=== PATIENT | female | born 1980 | race Caucasian/White ===

== ENCOUNTER → 2017-09-07 | Outpatient (CLI) | payer BC ==
[~2017-09-07] MED LIST: ALPR0.25 PO; BCP PO; ONDA4TAB8 PO; OXYC-197 PO; RT-ALBUINH IH
--- NOTE | 2017-09-07 13:54 | Diagnostic Imaging Report ---
INDICATION: . TECHNIQUE: Multiple Real-time grayscale images were obtained over the gravid uterus. COMPARISON: None. FINDINGS: There is a single live fetus in a variable presentation. The placenta is posterior. The amniotic fluid volume is normal. The heart rate was recorded at 147 BPM. The cervical length is 4.8 cm. The survey demonstrates the kidneys, bladder, and stomach to be unremarkable. The intracranial structures are unremarkable. There is a four-chamber heart. There is a three-vessel cord with normal cord insertion. The spine is unremarkable. Biometrical measurements are as follows: Biparietal 4.96 cm, age 21 weeks 1 days. Head circumference 18.77 cm, age 21 weeks 1 days. Abdominal circumference 15.77 cm, age 21 weeks 0 days. Femur length 4.2 cm, age 23 weeks 5 days. Sonographic estimate age: 21 weeks 6 days. Sonographic estimated date of delivery: 01/12/2018. Estimated Weight: 469 gm (+/- 69 gm). LMP percentile: 98%. heart rate: 147 beats per minute. number: 1 of 1. IMPRESSION: Single live IUP of approximately 22 weeks gestational age. The estimated date of confinement sonographically is 01/12/2018. Dictated by: Dictated on workstation # [id number]
== END ==
LOC: RAD 12:44
PROVIDERS: ATTEND Obstetrics & Gynecology
DX: O09.522 Supervision of elderly multigravida, second trimester (principal); Z3A.21 21 weeks gestation of pregnancy
CPT/HCPCS: 76805

== ENCOUNTER 2018-01-06 09:06 | Inpatient (IN) | payer BC ==
[2018-01-06] VITALS (57 sets, daily range): BP systolic 95–159; BP diastolic 42–90
[2018-01-06] MEDS ORDERED: D5 LR IV SOLUTION 1,000 ML IV ONE (09:46)
[2018-01-06 10:19] LABS: BASOPHILS % (AUTO) 0 % (0-10); EOSINOPHILS # (AUTO) 0.5 10^3/uL (0.0-0.3); EOSINOPHILS % (AUTO) 4 % (0-10); HEMATOCRIT 33 % (35-52); HEMOGLOBIN 11.7 G/DL (11.5-16.0); LYMPHOCYTES # (AUTO) 2.7 X 10^3 (1.0-4.0); LYMPHOCYTES % (AUTO) 22 % (12-44); MEAN CORPUSCULAR HEMOGLOBIN 31 PG (25-34); MEAN CORPUSCULAR HGB CONC 35 G/DL (32-36); MEAN CORPUSCULAR VOLUME 90 FL (80-99); MEAN PLATELET VOLUME 10.8 FL (7.4-10.4); MONOCYTES # (AUTO) 0.8 X 10^3 (0.0-1.0); MONOCYTES % (AUTO) 6 % (0-12); NEUTROPHILS # (AUTO) 8.2 X 10^3 (1.8-7.8); NEUTROPHILS % (AUTO) 67 % (42-75); PLATELET COUNT 330 10^3/uL (130-400); RED BLOOD COUNT 3.73 10^6/uL (4.35-5.85); RED CELL DISTRIBUTION WIDTH 14.1 % (10.0-14.5); WHITE BLOOD COUNT 12.2 10^3/uL (4.3-11.0)
[2018-01-06 10:40] LABS: ALANINE AMINOTRANSFERASE 39 U/L (0-55); ALBUMIN 3.5 GM/DL (3.2-4.5); ALKALINE PHOSPHATASE 88 U/L (40-136); BILIRUBIN,TOTAL 0.2 MG/DL (0.1-1.0); BUN/CREATININE RATIO 13; CALCIUM 9.3 MG/DL (8.5-10.1); CARBON DIOXIDE 18 MMOL/L (21-32); CHLORIDE 109 MMOL/L (98-107); GFR ESTIMATED > 60; GLUCOSE 87 MG/DL (70-105); POTASSIUM 3.7 MMOL/L (3.6-5.0); SODIUM 138 MMOL/L (135-145); TOTAL PROTEIN 6.6 GM/DL (6.4-8.2); URIC ACID 3.9 MG/DL (2.6-7.2)
[2018-01-06] MEDS ORDERED: OXYTOCIN/NORMAL SALINE 500 ML IV SCH (11:19)
[2018-01-06] MEDS ORDERED: LACTATED RINGERS 1,000 ML IV ONE (13:41)
[2018-01-06] MEDS ORDERED: CATHETER FLUSH 10 ML SYR IV SCH (14:00)
[2018-01-06] MEDS ORDERED: SUFENTA 0.6MCG/ML BUPIVA 0.125 100 ML ONE (14:49)
[2018-01-06] MEDS ORDERED: fentaNYL INJECTION 100 MCG/2 ML AMP ONE ×2 (14:49→16:50)
[2018-01-06] MEDS ORDERED: BUPIVACAINE 0.25% 30 ML (SENSORCAINE) VIAL ONE ×2 (14:49→16:50)
[2018-01-06] MEDS ORDERED: LACTATED RINGERS 1,000 ML IV SCH (15:36)
[2018-01-06] MEDS ORDERED: EPIDURAL (SUFENTA 0.6MCG/ML BUPIVA 0.125%) 100 ML BAG EPI PRN (15:45)
[2018-01-06] MEDS ORDERED: ONDANSETRON 4 MG/2 ML (SDV) Z0FRAN IV PRN (15:45)
[2018-01-06] MEDS ORDERED: NALOXONE 0.4 MG/ML 1 ML (NARCAN) VIAL IV PRN ×2 (15:45)
[2018-01-06] MEDS ORDERED: METOCLOPRAMIDE INJ 10 MG/2 ML (REGLAN) IV PRN (15:45)
[2018-01-06] MEDS ORDERED: diphenhydrAMINE 50 MG/ML INJ (BENADRYL) IV PRN (15:45)
--- NOTE | 2018-01-06 16:17 | History & Physical-OB ---
OB - Chief Complaint & HPI Date/Time Date of Admission: Date of Admission: Jan 06, 2018 at 9:06 am Time Seen by Provider: 10:00 Chief Complaint/History OB-Reason for Admission/Chief: Induction of Labor Hx : 2 Hx Para: 1 Expected Date of Delivery: Jan 22, 2018 Gestational Age in Weeks: 37 Gestational Age in Days: 5 Indication for induction: medical complication (Uncontrolled GHTN >150/90, AMA) Admission Nurse Assessment Rev: Yes History of Labs B neg Antibody neg RI RPR NR HBsAg NR HIV NR GC neg GBS neg Allergies and Home Medications Allergies Coded Allergies: penicillin G (Verified Allergy, Unknown, 10/09/09) Home Medications Albuterol Sulfate 8.5 Gm Hfa.aer.ad, 2 PUFF IH Q4H PRN for WHEEZING, (Reported) Alprazolam 0.25 Mg Tablet, 0.25 MG PO QID PRN for ANXIETY, (Reported) Ondansetron 4 Mg Tab.rapdis, 1 EA PO Q4H Prescribed by: ZE JAY on 07/06/15 1450 Oxycodone HCl/Acetaminophen 1 Each Tablet, 1-2 EACH PO Q6H Prescribed by: CAROLINE VASQUEZ on 07/06/15 1106 [Bcp] , 1 TAB PO DAILY, (Reported) Patient Home Medication List Home Medication List Reviewed: Yes OB - History Hx of Present Care: Yes Ultrasounds: Normal mid trimester US Obstetrical Complications: Gestational Hypertension Medical Complications: Other (FERNANDES stage 1) Obstetrical History Hx Complication: Yes Hx Maternal Gestational Diabet: Yes (diet controlled) Delivery History Hx Blood Disorders: No Patient Past Medical History FERNANDES stage one Social History/Family History Recent Infectious Disease Expo: No Immunizations Date of Influenza Vaccine: Apr 06, 2015 OB - Admission Exam Physical Exam Vitals: Vital Signs 01/06/18 09:55 Temp 97.9 Pulse 97 Resp 18 B/P (MAP) 152/75 (100) O2 Delivery Room Air HEENT: NCAT Heart: Rhythm Normal Lungs: Clear Abdomen: Gravid Extremities: Normal Reflexes: Normal Cervical Dilatation: 3cm Effacement: 75% Station: -1 Membranes: Intact Heart Rate: 130's Accelerations: Accelerations Present Decelerations: Variable Decelerations Short Term Variability: Present [employer] Variability: Average (6-25) Contractions on Admission: 6-10 Minutes Apart Intensity: Mild Labs Laboratory Tests Test 01/06/18 10:01 Range/Units White Blood Count 12.2 H 4.3-11.0 10^3/uL Red Blood Count 3.73 L 4.35-5.85 10^6/uL Hemoglobin 11.7 11.5-16.0 G/DL Hematocrit 33 L 35-52 % Mean Corpuscular Volume 90 80-99 FL Mean Corpuscular Hemoglobin 31 25-34 PG Mean Corpuscular Hemoglobin Concent 35 32-36 G/DL Red Cell Distribution Width 14.1 10.0-14.5 % Platelet Count 330 130-400 10^3/uL Mean Platelet Volume 10.8 H 7.4-10.4 FL Neutrophils (%) (Auto) 67 42-75 % Lymphocytes (%) (Auto) 22 12-44 % Monocytes (%) (Auto) 6 0-12 % Eosinophils (%) (Auto) 4 0-10 % Basophils (%) (Auto) 0 0-10 % Neutrophils # (Auto) 8.2 H 1.8-7.8 X 10^3 Lymphocytes # (Auto) 2.7 1.0-4.0 X 10^3 Monocytes # (Auto) 0.8 0.0-1.0 X 10^3 Eosinophils # (Auto) 0.5 H 0.0-0.3 10^3/uL Basophils # (Auto) 0.0 0.0-0.1 10^3/uL Sodium Level 138 135-145 MMOL/L Potassium Level 3.7 3.6-5.0 MMOL/L Chloride Level 109 H 98-107 MMOL/L Carbon Dioxide Level 18 L 21-32 MMOL/L Anion Gap 11 5-14 MMOL/L Blood Urea Nitrogen 8 7-18 MG/DL Creatinine 0.60 0.60-1.30 MG/DL Estimat Glomerular Filtration Rate > 60 BUN/Creatinine Ratio 13 Glucose Level 87 70-105 MG/DL Uric Acid 3.9 2.6-7.2 MG/DL Calcium Level 9.3 8.5-10.1 MG/DL Total Bilirubin 0.2 0.1-1.0 MG/DL Aspartate Amino Transf (AST/SGOT) 36 H 5-34 U/L Alanine Aminotransferase (ALT/SGPT) 39 0-55 U/L Alkaline Phosphatase 88 40-136 U/L Total Protein 6.6 6.4-8.2 GM/DL Albumin 3.5 3.2-4.5 GM/DL OB - Assessment/Plan/Diagnosis Assessment Assessment: induction of labor Admission Dx 37 yo @ 37.5 weeks Uncontrolled GHTN AMA FERNANDES stage 1 GBS neg Admission Status: Inpatient Order (span 2 midnights) Reason for Inpatient Admission: 37 yo @ 37.5 weeks INduction of labor Uncontrolled GHTN AMA FERNANDES stage 1 GBS neg Plan Plan: Induction Induction Method: ENMANUEL SULLIVAN DO Jan 06, 2018 4:17 pm
[2018-01-06] MEDS: OXYTOCIN/NORMAL SALINE 500 ML IV SCH ×2 (18:03→19:03)
[2018-01-06] MEDS ORDERED: MEASLES,MUMPS,RUBELLA 1 EA INJ SQ ONE (18:15)
[2018-01-06] MEDS ORDERED: TETANUS,DIPTH,PERTUSS P/F (BOOSTRIX) 0.5 ML VIAL IM ONE (18:15)
[2018-01-06] MEDS ORDERED: WITCH HAZEL(TUCKS) 40 EA JAR TOP PRN (18:15)
[2018-01-06] MEDS ORDERED: DIBUCAINE (NUPERCAINAL) 1% OINT 30 GM TOP PRN (18:15)
[2018-01-06] MEDS ORDERED: BENZOCAINE/MENTHOL (DERMOPLAST) 56 ML CAN TP PRN (18:15)
--- NOTE | 2018-01-06 18:15 | OB Labor & Delivery Record ---
L&D History Date of Service Date of Service: Jan 06, 2018 History Expected Date of Delivery: Jan 22, 2018 Gestational Age in Weeks: 37 Hx : 2 Hx Para: 1 Complications Events: Induced HTN, Routine care (AMA) Operative Indications (Cesarea: N/A-Vaginal Delivery Intrapartal Events: None L&D Stage1 Stage One Onset of Labor - Date: Jan 06, 2018 Monitors and Tracing Monitor Mode: External Heart Rate: 135 Monitor Accelerations: Uniform Monitor Decelerations: Early [facility] Variability: Average (6-10) Short Term Variability: Present Presentation: Vertex Vital Signs VS - Last 72 Hours, by Label 01/06/18 01/06/18 01/06/18 01/06/18 09:55 11:15 11:30 11:45 Temp 97.9 Pulse 97 103 96 96 Resp 18 20 20 20 B/P (MAP) 152/75 (100) 132/86 (101) 141/69 (93) 139/65 (89) O2 Delivery Room Air Room Air Room Air Room Air 01/06/18 01/06/18 01/06/18 01/06/18 12:00 12:15 12:30 12:45 Pulse 96 103 100 99 Resp 20 20 20 20 B/P (MAP) 137/69 (91) 137/72 (93) 137/72 (93) 119/76 (90) O2 Delivery Room Air Room Air Room Air Room Air 01/06/18 13:00 Pulse 101 Resp 20 B/P (MAP) 133/74 (93) O2 Delivery Room Air Rupture of Membranes Spontaneous Ruture of Membrane: No Amniotic Membrane Rupture Time: 1029 Amniotic Membrane Fluid Desc.: Clear Vaginal Bleeding Description: Normal Show Progress/Notes Pitocin augmentation was started and increased to a max of 10mu/min. Epidural received for pain, first epidural did not work appropriately, it was then replaced. L&D Stage2 Stage Two Stage II Date: Jan 06, 2018 Monitors and Tracing Monitor Mode: External Heart Rate: 135 Monitor Decelerations: Variable [employer] Variability: Minimal (3-5) Short Term Variability: Present Position: Right Occiput Anterior Presentation: Vertex Cord Descript/Complications Cord Vessel Description: 3 Vessels Delivery Type Delivery Method: Spontaneous Vaginal Anterior Shoulder: Left Episiotomy/Perineal Laceration Laceraction(s)/Extensions: No Condition of Delivery 1 minute Comment: 7 5 minute Comment: 9 Notes Live male infant weight pending Condition of Condition of Infant: Living Exam: No Observed Abnormalities Resuscitation Resuscitation: N/A - Spontaneous Resp L&D Stage3 Stage Three Stage III Date: Jan 06, 2018 Pictocin Pitocin Administration mu/min: 4 Pitocin ml/hr: 4 Pitocin Administration Comment: 30 mu/min wide open at [facility] placenta Placenta Delivery Placenta Delivery: Spontaneous Delivery Summary Summary Estimated blood loss (mL): 200 Attending at delivery: Enmanuel Young DO Condition of Delivery Examined: Cervix Examined, Uterus Explored Post Hemorrhage: No Condition of Mother stable Condition of Infant (s) stable ENMANUEL YOUNG DO Jan 06, 2018 6:15 pm
[2018-01-06] MEDS: IBUPROFEN 600 MG (MOTRIN) TAB PO SCH (21:38)
[2018-01-06] MEDS: DOCUSATE SODIUM 100 MG (COLACE) CAP PO SCH (21:44)
[2018-01-07 00:30] VITALS: BP 108/62
[2018-01-07 04:09] VITALS: BP 107/62
[2018-01-07] MEDS: IBUPROFEN 600 MG (MOTRIN) TAB PO SCH ×4 (04:09→22:01)
[2018-01-07 05:49] LABS: BASOPHILS % (AUTO) 0 % (0-10); EOSINOPHILS # (AUTO) 0.3 10^3/uL (0.0-0.3); EOSINOPHILS % (AUTO) 2 % (0-10); HEMATOCRIT 30 % (35-52); HEMOGLOBIN 10.1 G/DL (11.5-16.0); LYMPHOCYTES # (AUTO) 3.3 X 10^3 (1.0-4.0); LYMPHOCYTES % (AUTO) 18 % (12-44); MEAN CORPUSCULAR HEMOGLOBIN 31 PG (25-34); MEAN CORPUSCULAR HGB CONC 34 G/DL (32-36); MEAN CORPUSCULAR VOLUME 91 FL (80-99); MEAN PLATELET VOLUME 10.7 FL (7.4-10.4); MONOCYTES # (AUTO) 1.5 X 10^3 (0.0-1.0); MONOCYTES % (AUTO) 8 % (0-12); NEUTROPHILS # (AUTO) 13.7 X 10^3 (1.8-7.8); NEUTROPHILS % (AUTO) 73 % (42-75); PLATELET COUNT 314 10^3/uL (130-400); RED BLOOD COUNT 3.31 10^6/uL (4.35-5.85); RED CELL DISTRIBUTION WIDTH 14.3 % (10.0-14.5); WHITE BLOOD COUNT 18.9 10^3/uL (4.3-11.0)
[2018-01-07 08:05] VITALS: BP 136/84
[2018-01-07] MEDS: DOCUSATE SODIUM 100 MG (COLACE) CAP PO SCH ×2 (08:05→22:00)
[2018-01-07] MEDS: PRENATAL VITAMIN 1 EA TAB PO SCH (08:05)
[2018-01-07] MEDS: FERROUS SULF 325 MG (IRON) TAB PO SCH (08:05)
[2018-01-07] MEDS: HYDROcodone/APAP 5 MG/325 MG (LORTAB) TAB PO PRN ×2 (08:10→23:01)
--- NOTE | 2018-01-07 09:15 | Postpartum Progress Note ---
Note Note Day #1 Subjective: Patient is without complaints. Ambulating, voiding. Tolerating a regular diet without nausea or vomiting. Normal lochia. Pain is well controlled with oral pain medications. [] feeding. [] Objective: Vital Sign - Last 24 Hours 01/06/18 01/06/18 01/06/18 01/06/18 09:55 11:15 11:30 11:45 Temp 97.9 Pulse 97 103 96 96 Resp 18 20 20 20 B/P (MAP) 152/75 (100) 132/86 (101) 141/69 (93) 139/65 (89) O2 Delivery Room Air Room Air Room Air Room Air 01/06/18 01/06/18 01/06/18 01/06/18 12:00 12:15 12:30 12:45 Pulse 96 103 100 99 Resp 20 20 20 20 B/P (MAP) 137/69 (91) 137/72 (93) 137/72 (93) 119/76 (90) O2 Delivery Room Air Room Air Room Air Room Air 01/06/18 01/06/18 01/06/18 01/06/18 13:00 13:15 13:30 13:45 Pulse 101 92 95 99 Resp 20 20 20 18 B/P (MAP) 133/74 (93) 137/80 (99) 137/80 (99) 155/90 (111) O2 Delivery Room Air Room Air Room Air Room Air 01/06/18 01/06/18 01/06/18 01/06/18 14:00 14:15 14:30 14:45 Pulse 88 75 74 75 Resp 18 18 18 18 B/P (MAP) 141/83 (102) 139/82 (101) 147/84 (105) 134/76 (95) O2 Delivery Room Air Room Air Room Air Room Air 01/06/18 01/06/18/01/06/18 14:56 15:00 15:05 15:10 Pulse 90 83 81 Resp 18 18 18 B/P (MAP) 148/80 (102) 147/82 (103) 132/70 (90) Pulse Ox 99 99 99 O2 Delivery Room Air Room Air Room Air Room Air 01/06/18 01/06/18 01/06/18 01/06/18 15:15 15:20 15:25 15:30 Pulse 90 96 105 100 Resp 18 18 18 18 B/P (MAP) 148/80 (102) 136/80 (98) 137/76 (96) 95/42 (59) Pulse Ox 99 97 97 98 O2 Delivery Room Air Room Air Room Air Room Air 18 62018 6/20/18 6 15:35 15:40 16:00 16:15 Pulse 92 91 96 90 Resp 18 18 18 18 B/P (MAP) 114/72 (86) 130/77 (94) 121/76 (91) 116/61 (79) Pulse Ox 97 97 99 97 O2 Delivery Room Air Room Air Room Air Room Air 18 01/06/18 01/06/18 01/06/18 16:30 16:45 16:50 16:55 Pulse 83 90 92 92 Resp 18 18 18 18 B/P (MAP) 119/67 (84) 159/87 (111) 131/78 (95) 131/78 (95) Pulse Ox 99 99 100 100 O2 Delivery Room Air Room Air Room Air Room Air 01/06/1818 601/06/18 17:00 17:05 17:10 17:15 Pulse 104 101 106 90 Resp 18 18 18 18 B/P (MAP) 126/65 (85) 129/68 (88) 110/55 (73) 126/65 (85) Pulse Ox 99 99 99 99 O2 Delivery Room Air Room Air Room Air Room Air 01/06/182018 62018 01/06/18 17:20 17:25 17:30 17:40 Pulse 101 100 90 83 Resp 18 18 18 18 B/P (MAP) 120/67 (84) 119/62 (81) 126/65 (85) 120/69 (86) Pulse Ox 97 99 99 O2 Delivery Room Air Room Air Room Air Room Air 01/06/1818 01/06/18 01/06/18 17:45 17:50 17:55 18:00 Pulse 104 108 105 113 Resp 18 18 18 18 B/P (MAP) 126/65 (85) 130/54 (79) 107/62 (77) 133/62 (85) O2 Delivery Non Rebreather Non Rebreather Non Rebreather Room Air O2 Flow Rate 10.00 10.00 10.00 6/20/18 6/20/18 6/20/18 6/20/18 18:05 18:15 18:20 18:25 Pulse 106 121 110 102 Resp 18 18 18 18 B/P (MAP) 113/62 (79) 106/56 (73) 114/58 (76) 115/58 (77) O2 Delivery Room Air Room Air Room Air Room Air 01/06/18 01/06/18 01/06/18 01/06/18 18:30 18:35 18:40 18:45 Pulse 108 103 93 97 Resp 18 18 18 B/P (MAP) 118/64 (82) 115/64 (81) 123/65 (84) 125/64 (84) O2 Delivery Room Air Room Air Room Air Room Air 01/06/18 01/06/18 01/06/18 01/06/18 18:50 19:00 19:03 19:19 Temp 96.8 Pulse 95 93 94 93 Resp 18 B/P (MAP) 124/71 (88) 122/70 (87) 119/76 (90) 117/67 (84) O2 Delivery Room Air Room Air Room Air Room Air 01/06/18 01/06/18 01/07/18 01/07/18 19:34 19:49 00:30 04:09 Temp 97.7 98.5 Pulse 88 96 86 84 Resp 18 18 B/P (MAP) 129/65 (86) 115/62 (79) 108/62 (77) 107/62 (77) Pulse Ox 98 97 O2 Delivery Room Air Room Air Room Air Room Air Intake and Output 01/06/18 01/06/18 01/07/18 15:00 23:00 07:00 Intake Total 800 ml Balance 800 ml Physical Exam: General - Alert and oriented, no apparent distress Abdomen - Soft, appropriately tender to palpation, non-distended, fundus firm at umbilicus Extremities - no edema, negative Thad's bilaterally Assessment: PPD 1 NVD Hx FERNANDES AMA Plan: Routine care. Encourage breast feeding. Encourage ambulation. Ferrous sulfate supplementation. Plan for discharge tomorrow Vitals - Labs Vital Signs - I&O Vital Signs Date Time Temp Pulse Resp B/P (MAP) Pulse Ox O2 Delivery O2 Flow Rate FiO2 01/07/18 04:09 98.5 84 18 107/62 (77) 97 Room Air 01/07/18 00:30 97.7 86 18 108/62 (77) 98 Room Air 01/06/18 19:49 96 18 115/62 (79) Room Air 01/06/18 19:34 88 18 129/65 (86) Room Air 01/06/18 19:19 93 18 117/67 (84) Room Air 01/06/18 19:03 94 18 119/76 (90) Room Air 01/06/18 19:00 96.8 93 18 122/70 (87) Room Air 01/06/18 18:50 95 18 124/71 (88) Room Air 01/06/18 18:45 97 18 125/64 (84) Room Air 01/06/18 18:40 93 18 123/65 (84) Room Air 01/06/18 18:35 103 18 115/64 (81) Room Air 01/06/18 18:30 108 18 118/64 (82) Room Air 01/06/18 18:25 102 18 115/58 (77) Room Air 01/06/18 18:20 110 18 114/58 (76) Room Air 01/06/18 18:15 121 18 106/56 (73) Room Air 01/06/18 18:05 106 18 113/62 (79) Room Air 01/06/18 18:00 113 18 133/62 (85) Room Air 01/06/18 17:55 105 18 107/62 (77) Non Rebreather 10.00 01/06/18 17:50 108 18 130/54 (79) Non Rebreather 10.00 01/06/18 17:45 104 18 126/65 (85) Non Rebreather 10.00 01/06/18 17:40 83 18 120/69 (86) Room Air 01/06/18 17:30 90 18 126/65 (85) 99 Room Air 01/06/18 17:25 100 18 119/62 (81) 99 Room Air 01/06/18 17:20 101 18 120/67 (84) 97 Room Air 01/06/18 17:15 90 18 126/65 (85) 99 Room Air 01/06/18 17:10 106 18 110/55 (73) 99 Room Air 6/20/18 17:05 101 18 129/68 (88) 99 Room Air 01/06/18 17:00 104 18 126/65 (85) 99 Room Air 01/06/18 16:55 92 18 131/78 (95) 100 Room Air 01/06/18 16:50 92 18 131/78 (95) 100 Room Air 01/06/18 16:45 90 18 159/87 (111) 99 Room Air 01/06/18 16:30 83 18 119/67 (84) 99 Room Air 01/06/18 16:15 90 18 116/61 (79) 97 Room Air 01/06/18 16:00 96 18 121/76 (91) 99 Room Air 01/06/18 15:40 91 18 130/77 (94) 97 Room Air 01/06/18 15:35 92 18 114/72 (86) 97 Room Air 01/06/18 15:30 100 18 95/42 (59) 98 Room Air 01/06/18 15:25 105 18 137/76 (96) 97 Room Air 01/06/18 15:20 96 18 136/80 (98) 97 Room Air 01/06/18 15:15 90 18 148/80 (102) 99 Room Air 01/06/18 15:10 81 18 132/70 (90) 99 Room Air 01/06/18 15:05 83 18 147/82 (103) 99 Room Air 01/06/18 15:00 90 18 148/80 (102) 99 Room Air 01/06/18 14:56 Room Air 01/06/18 14:45 75 18 134/76 (95) Room Air 01/06/18 14:30 74 18 147/84 (105) Room Air 01/06/18 14:15 75 18 139/82 (101) Room Air 01/06/18 14:00 88 18 141/83 (102) Room Air 01/06/18 13:45 99 18 155/90 (111) Room Air 01/06/18 13:30 95 20 137/80 (99) Room Air 01/06/18 13:15 92 20 137/80 (99) Room Air 01/06/18 13:00 101 20 133/74 (93) Room Air 01/06/18 12:45 99 20 119/76 (90) Room Air 01/06/18 12:30 100 20 137/72 (93) Room Air 6/20/18 12:15 103 20 137/72 (93) Room Air 01/06/18 12:00 96 20 137/69 (91) Room Air 01/06/18 11:45 96 20 139/65 (89) Room Air 01/06/18 11:30 96 20 141/69 (93) Room Air 01/06/18 11:15 103 20 132/86 (101) Room Air 01/06/18 09:55 97.9 97 18 152/75 (100) Room Air I & O 01/07/18 07:00 Intake Total 800 ml Balance 800 ml Labs Laboratory Tests 01/06/18 10:01: White Blood Count 12.2H, Red Blood Count 3.73L, Hemoglobin 11.7, Hematocrit 33L , Mean Corpuscular Volume 90, Mean Corpuscular Hemoglobin 31, Mean Corpuscular Hemoglobin Concent 35, Red Cell Distribution Width 14.1, Platelet Count 330, Mean Platelet Volume 10.8H, Neutrophils (%) (Auto) 67, Lymphocytes (%) (Auto) 22 , Monocytes (%) (Auto) 6, Eosinophils (%) (Auto) 4, Basophils (%) (Auto) 0, Neutrophils # (Auto) 8.2H, Lymphocytes # (Auto) 2.7, Monocytes # (Auto) 0.8, Eosinophils # (Auto) 0.5H, Basophils # (Auto) 0.0, Sodium Level 138, Potassium Level 3.7, Chloride Level 109H, Carbon Dioxide Level 18L, Anion Gap 11, Blood Urea Nitrogen 8, Creatinine 0.60, Estimat Glomerular Filtration Rate > 60, BUN/ Creatinine Ratio 13, Glucose Level 87, Uric Acid 3.9, Calcium Level 9.3, Total Bilirubin 0.2, Aspartate Amino Transf (AST/SGOT) 36H, Alanine Aminotransferase ( ALT/SGPT) 39, Alkaline Phosphatase 88, Total Protein 6.6, Albumin 3.5 01/07/18 05:10: White Blood Count 18.9H, Red Blood Count 3.31L, Hemoglobin 10.1L, Hematocrit 30L , Mean Corpuscular Volume 91, Mean Corpuscular Hemoglobin 31, Mean Corpuscular Hemoglobin Concent 34, Red Cell Distribution Width 14.3, Platelet Count 314, Mean Platelet Volume 10.7H, Neutrophils (%) (Auto) 73, Lymphocytes (%) (Auto) 18 , Monocytes (%) (Auto) 8, Eosinophils (%) (Auto) 2, Basophils (%) (Auto) 0, Neutrophils # (Auto) 13.7H, Lymphocytes # (Auto) 3.3, Monocytes # (Auto) 1.5H, Eosinophils # (Auto) 0.3, Basophils # (Auto) 0.0 ENMANUEL YOUNG DO Jan 07, 2018 9:15 am
--- NOTE | 2018-01-07 11:02 | Anesthesia-Regional Post-Op ---
Regional Patient Condition Mental Status: Alert, Oriented x3 Circulation: Same as Pre-Op Headache: Absent Sensation: Full Recovery Motor Block: Absent Post Op Complications Complications None Follow Up Care/Instructions Patient Instructions None needed. Anesthesia/Patient Condition Patient is doing well, no complaints, stable vital signs, no apparent adverse anesthesia problems. No complications reported per nursing. KYLE VAZQUEZ CRNA Jan 07, 2018 11:02
[2018-01-07 11:45] VITALS: BP 121/74
[2018-01-07] MEDS: CATHETER FLUSH 10 ML SYR IV SCH ×2 (12:42→14:00)
[2018-01-07] MEDS: D5 LR IV SOLUTION 1,000 ML IV SCH ×2 (12:42→18:41)
[2018-01-07 16:25] VITALS: BP 122/74
[2018-01-07 22:05] VITALS: BP 135/85
[2018-01-08] MEDS: IBUPROFEN 600 MG (MOTRIN) TAB PO SCH ×2 (03:18→09:59)
[2018-01-08 03:19] VITALS: BP 109/70
[2018-01-08] MEDS ORDERED: DOCU100C37 PO (06:36)
[2018-01-08] MEDS ORDERED: FERR325T18 PO (06:36)
[2018-01-08] MEDS ORDERED: IBUP-844 PO (06:36)
[2018-01-08] MEDS ORDERED: ACHD5005 PO (06:36)
--- NOTE | 2018-01-08 06:37 | Discharge Inst-Women's Service ---
Discharge Inst-Women's Serv Depart Medication/Instructions New, Converted or Re-Newed RX: RX on Chart Consults/Follow Up Additional Follow Up: Yes Orders/Referrals Dr. Young in 6 weeks Activity Activity: Activity as Tolerated Driving Instructions: No Driving for 1 Week NO SMOKING: NO SMOKING Nothing Inside Vagina: No Douching, No [place], No Tampons Diet Discharge Diet: No Restrictions Symptoms to Report to : Bleeding Excessive, Pain Increased, Fever Over 101 Degrees F, Vaginal Bleeding Increase, Questions/Concerns For Any Problems or Questions: Contact Your Physician Skin/Wound Care Bathing Instructions: Shower (x 2 weeks or sitz baths) ENMANUEL YOUNG DO Jan 08, 2018 6:37 am
--- NOTE | 2018-01-08 06:42 | Postpartum Progress Note ---
Note Note Day #2 Subjective: Patient is without complaints. Ambulating, voiding. Tolerating a regular diet without nausea or vomiting. Normal lochia. Pain is well controlled with oral pain medications. Objective: Vital Sign - Last 24 Hours 01/07/18 01/07/18 01/07/18 01/07/18 08:05 11:45 16:25 18:51 Temp 98.4 97.9 98.8 98.8 Pulse 86 72 81 Resp 16 12 20 B/P (MAP) 136/84 (101) 121/74 (90) 122/74 (90) Pulse Ox 96 96 99 O2 Delivery Room Air Room Air Room Air 01/07/18 01/08/18 22:05 03:19 Temp 97.6 97.2 Pulse 72 78 Resp 18 18 B/P (MAP) 135/85 (102) 109/70 (83) Pulse Ox 99 99 O2 Delivery Room Air Room Air Intake and Output 01/07/18 01/07/18 01/08/18 15:00 23:00 07:00 Intake Total 1200 ml Balance 1200 ml Physical Exam: General - Alert and oriented, no apparent distress Abdomen - Soft, appropriately tender to palpation, non-distended, fundus firm at umbilicus Extremities - no edema, negative Thad's bilaterally Assessment: PPD 2 NVD Acute blood loss anemia- asymptomatic Plan: Routine care. Encourage breast feeding. Encourage ambulation. Ferrous sulfate supplementation. Plan for discharge today Vitals - Labs Vital Signs - I&O Vital Signs Date Time Temp Pulse Resp B/P (MAP) Pulse Ox O2 Delivery O2 Flow Rate FiO2 01/08/18 03:19 97.2 78 18 109/70 (83) 99 Room Air 01/07/18 22:05 97.6 72 18 135/85 (102) 99 Room Air 01/07/18 18:51 98.8 01/07/18 16:25 98.8 81 20 122/74 (90) 99 Room Air 01/07/18 11:45 97.9 72 12 121/74 (90) 96 Room Air 01/07/18 08:05 98.4 86 16 136/84 (101) 96 Room Air I & O 01/08/18 07:00 Intake Total 1200 ml Balance 1200 ml ENMANUEL YOUNG DO Jan 08, 2018 6:42 am
[2018-01-08 08:15] VITALS: BP 138/82
[2018-01-08] MEDS: PRENATAL VITAMIN 1 EA TAB PO SCH (09:59)
[2018-01-08] MEDS: DOCUSATE SODIUM 100 MG (COLACE) CAP PO SCH (09:59)
[2018-01-08] MEDS: FERROUS SULF 325 MG (IRON) TAB PO SCH (09:59)
[2018-01-08 10:32] VITALS: BP 138/82
--- NOTE | 2018-01-12 11:57 | Physician Query-Final Dx ---
Final Diagnosis Give Final Diagnosis Please give Final Diagnosis MK DURBIN Jan 12, 2018 11:57
== END 2018-01-08 10:32 | disposition home or self-care (01) | DRG 775 ==
LOC: LDRP 09:06
PROVIDERS: ADMIT Obstetrics & Gynecology; ATTEND Obstetrics & Gynecology
PROC: 10E0XZZ Delivery of Products of Conception, External Approach (ICD-10-PCS; principal; 2018-01-06)
DX: O13.3 Gestational [pregnancy-induced] hypertension without significant proteinuria, third trimester (principal); O26.613 Liver and biliary tract disorders in pregnancy, third trimester; O99.613 Diseases of the digestive system complicating pregnancy, third trimester; K75.81 Nonalcoholic steatohepatitis (NASH); O24.410 Gestational diabetes mellitus in pregnancy, diet controlled; O90.81 Anemia of the puerperium; Z3A.37 37 weeks gestation of pregnancy; Z37.0 Single live birth; Z23 Encounter for immunization
CPT/HCPCS: 36415; 80053; 84550; 85025; 86850; 86900; 86901; 90715